=== PATIENT | male | born 1960 | race Caucasian/White ===

== ENCOUNTER 2017-05-13 12:27 | Emergency (ER) | payer OTHER ==
[2017-05-13 12:35] VITALS: BP 119/90
--- NOTE | 2017-05-13 14:17 | UC ---
Sharyn Johnson Alfonso, scribed for Bryant Downing MD on 05/13/17 at 1252 . HPI Febrile Illness - HPI Summary HPI Summary: This patient is a 56 year old male presenting to [facility] c/o fatigue since a few days ago. Pt states I might have Lyme disease. He reports he found an engorged tick in his bed 3 weeks ago. He works as a student support counselor. Pt denies any pain currently. Sx aggravated and alleviated by nothing. Pt reports headache, muscle aches, hot flashes, and productive coughing. Pt denies fever, chills, neck pain, rash, rhinorrhea, sore throat, SOB, abd pain, vomiting, and diarrhea. Pt denies sick contacts. Denies PMHx of Lyme disease. Tobacco use disorder. - History of Current Complaint Chief Complaint: UCGeneralIllness Time Seen by Provider: 05/13/17 12:39 Hx Obtained From: Patient Onset/Duration: Started Days Ago - A few, Still Present Timing: Constant Initial Severity: Mild Current Severity: Mild Pain Intensity: 0 Pain Scale Used: 0-10 Numeric Aggravating Factors: Nothing Alleviating Factors: Nothing Associated Signs and Symptoms: Other: - Positive headache, fatigue, muscle aches , hot flashes, and productive coughing; negative fever, chills, neck pain, rash , rhinorrhea, sore throat, SOB, abd pain, vomiting, and diarrhea. - Allergy/Home Medications Allergies/Adverse Reactions: Allergies Allergy/AdvReac Type Severity Reaction Status Date / Time No Known Allergies Allergy Verified 07/21/13 17:58 PMH/Surg Hx/FS Hx/Imm Hx Infectious Disease History: No Infectious Disease History: Denies: Hx Clostridium Difficile, Hx Hepatitis, Hx Human Immunodeficiency Virus (HIV), Hx of Known/Suspected MRSA, Hx Shingles, Hx Tuberculosis, Hx Known/ Suspected VRE, Hx Known/Suspected VRSA, History Other Infectious Disease, Traveled Outside the [place] in Last 30 Days - Family History Known Family History: Positive: Other - CVA father - Social History Alcohol Use: Occasionally Substance Use Type: Reports: None Smoking Status (MU): Heavy Every Day Tobacco Smoker Review of Systems Constitutional: Other - Negative fever, chills, Skin: Other - Negative rash ENT: Other - Negative rhinorrhea, sore throat Respiratory: Cough - Productive, Other - Negative SOB Gastrointestinal: Other - Negative abd pain, vomiting, and diarrhea Musculoskeletal: Myalgia - Muscle aches, Other: - Negative neck pain, Neurological: Headache, Other - Positive fatigue, hot flashes, All Other Systems Reviewed And Are Negative: Yes Physical Exam Triage Information Reviewed: Yes Vital Signs: Initial Vital Signs Temp 98.8 F 05/13/17 12:32 Pulse 64 05/13/17 12:32 Resp 20 05/13/17 12:32 BP 119/90 05/13/17 12:32 Pulse Ox 98 05/13/17 12:32 Vital Signs Reviewed: Yes - Additional Comments The patient is well-nourished in no acute distress and in no acute pain. The skin is warm and dry and skin color reflects adequate perfusion. No obvious rash HEENT: The head is normocephalic and atraumatic. The pupils are equal and reactive. The conjunctivae are clear and without drainage. Nares are patent and without drainage. Mouth reveals moist mucous membranes and the throat is without erythema and exudate. The external ears are intact. The ear canals are patent and without drainage. The tympanic membranes are intact. Neck is supple with full range of motion and non-tender. There are no carotid bruits. There is no neck vein distension. Respiratory: Chest is non-tender. Lungs are clear to auscultation and breath sounds are symmetrical and equal. Cardiovascular: Heart is regular rate and rhythm. There is no murmur or rub auscultated. There is no peripheral edema and pulses are symmetrical and equal. Abdomen: The abdomen is soft and non-tender. There are normal bowel sounds heard in all four quadrants and there is no organomegaly palpated. Musculoskeletal: There is good capillary refill. Neurological: Patient is alert and oriented to person, place and time. Psychiatric: The patient has an appropriate affect and does not exhibit any anxiety or depression. Course/Dx - Course Assessment/Plan: A 56-year-old M presents to [facility] with a CC of fatigue since a few days ago. Pt states I might have Lyme disease. Pt reports headache, muscle aches, hot flashes, and productive coughing. Pt denies fever, chills, neck pain, rash, rhinorrhea, sore throat, SOB, abd pain, vomiting, and diarrhea. Patient will be discharged with follow up from PCP in 1 week. Pt is agreeable with this plan. - Febrile Illness Differential Diagnoses: Other: - lyme's disease - Diagnoses Clinic Provider Diagnoses: lyme's disease Discharge - Discharge Plan Condition: Stable Disposition: HOME Prescriptions: DOXYcycline CAP(*) [DOXYcycline 100MG CAP(*)] 100 mg PO BID #[id number] cap Patient Education Materials: Lyme Disease (ED), Tick Bite (ED) Referrals: Dinora Carrera PA [Physician [facility]] - 1 Week Additional Instructions: Follow up your PCP in the next week. The documentation as recorded by the Sharyn jones Alfonso accurately reflects the service I personally performed and the decisions made by me, Bryant Downing MD.
== END 2017-05-13 13:13 | disposition home or self-care (01) ==
LOC: UCEAST 12:27
DX: A69.20 Lyme disease, unspecified (principal); F17.200 Nicotine dependence, unspecified, uncomplicated
CPT/HCPCS: 86618; 99202; G0463